=== PATIENT | female | born 1985 | race Caucasian/White ===

== ENCOUNTER 2018-09-08 17:10 | Inpatient (IN) | payer OTHER ==
[2018-09-08] MEDS: LACTATED RINGERS SOLUTION 1,000 ML/1,000 ML INFUS.BAG IV SCH (18:00)
[2018-09-08 18:03] VITALS: BMI 37.5
[2018-09-08] MEDS ORDERED: DINOPROSTONE 10 MG VAGINAL SUPPOSITORY VG ONE (18:16)
[2018-09-08] MEDS ORDERED: BUTORPHANOL TARTRATE 1 MG/ML VIAL IVPB ONE (18:18)
[2018-09-08] MEDS ORDERED: PROMETHAZINE HCL 25 MG/1 ML VIAL IVPUSH ONE (18:18)
--- NOTE | 2018-09-08 18:28 | HP ---
Past Medical History - Admission Chief Complaint: here for labor induction History of Present Illness: 33 y/o P0 with SIUP at 40+ weeks here for labor induction. Pt 1-2 cm dilated in office today. only complicated by on and off vaginal spotting. no DM/HTN or other medical issues. Abnormal pap in 1st trimester, to repeat after delivery. History Source: Patient, Medical Record - Past Medical History [employer]: No: Seizure Cardiovascular: No: Aortic Insufficiency Pulmonary: No: Asthma Gastrointestinal: No: GERD Hepatobiliary: No: Hepatitis B, Hepatitis C Reproductive: No: Ectopic , Endometriosis, Fibroids ...: 1 ...Para: 0 ...Term: 0 ...: 0 ...Spon : 0 ...Induced : 0 ...Multiple Gestation: 0 ...EDC by [facility]: 09/04/18 Heme/Onc: No: Anemia Psych: No: Anxiety, Bipolar, Depression - Past Surgical History Past Surgical History: Yes: None Hx Myomectomy: No Hx Transabdominal Cerclage: No - Smoking History Smoking history: Never smoked Have you smoked in the past 12 months: No - Alcohol/Substance Use Hx Alcohol Use: No - Social History History of Recent Travel: No Home Medications - Allergies Allergies/Adverse Reactions: Allergies Allergy/AdvReac Type Severity Reaction Status Date / Time No Known Allergies Allergy Verified 08/18/18 06:27 - Home Medications Home Medications: Ambulatory Orders Pnv No.95/Ferrous Fum/Folic AC [ Vitamin Tablet] 1 tab PO DAILY Review of Systems - Review of Systems Constitutional: reports: No Symptoms Eyes: reports: No Symptoms HENT: reports: No Symptoms Neck: reports: No Symptoms Cardiovascular: reports: No Symptoms Respiratory: reports: No Symptoms Gastrointestinal: reports: No Symptoms Genitourinary: reports: No Symptoms Breasts: reports: No Symptoms Reported Musculoskeletal: reports: No Symptoms Integumentary: reports: No Symptoms Neurological: reports: No Symptoms Endocrine: reports: No Symptoms Hematology/Lymphatic: reports: No Symptoms Psychiatric: reports: No Symptoms Physical Exam - Maternity Vital Signs: Vital Signs Temperature 98.9 F 09/08/18 17:30 Pulse Rate 90 09/08/18 17:30 Respiratory Rate 18 09/08/18 17:30 Blood Pressure 136/84 09/08/18 17:30 O2 Sat by Pulse Oximetry (%) Constitutional: Yes: Well Nourished, No Distress, Calm Eyes: Yes: Conjunctiva Clear, EOM Intact HENT: Yes: Atraumatic, Normocephalic Neck: Yes: Trachea Midline Cardiovascular: Yes: Regular Rate and Rhythm Lungs: Clear to auscultation - Abdominal Exam/OB Number of Fetuses: Single Presentation: Vertex Contractions: Yes Regularity: Irritability Intensity: Unaware Category: I Accelerations: Uniform Decelerations: None - Vaginal Exam/OB Dilatation (cm): 2 Effacement (%): 50 - Physical Exam Psychiatric: Yes: Alert, Oriented Hemorrhage Risk Assessment - Risk Factors Medium Risk Factors: Yes: None High Risk Factors: Yes: None Risk Score: 1 Risk Level: Medium Risk Problem List - Problems (1) Term Code(s): Z34.90 - ENCNTR FOR SUPRVSN OF NORMAL , UNSP, UNSP TRIMESTER Assessment/Plan 33 y/o with SIUP at 40+ weeks for IOL NST reactive occasional irritability/cramping cervidil placed consents for vaginal delivery signed anesthesia prn
[2018-09-08 19:13] LABS: BASO % 0.4 % (0-2.0); HEMATOCRIT 38.4 % (32.4-45.2); LYMPH % 13.3 % (8-40); MCH 30.5 pg (25.7-33.7); MCHC 33.8 g/dl (32.0-36.0); MEAN CELL VOLUME 90.3 fl (80-96); MEAN PLT VOLUME 9.4 fl (7.5-11.1); MONO % 5.3 % (3.8-10.2); PLATELET COUNT 188 K/MM3 (134-434); RBC 4.25 M/mm3 (3.60-5.2); RDW 14.9 % (11.6-15.6); WHITE BLOOD COUNT 10.3 K/mm3 (4.0-10.0)
[2018-09-08 19:44] LABS: BLOOD UREA NITROGEN 13.3 mg/dL (7-18); CALCIUM 8.7 mg/dL (8.5-10.1); CREATININE 0.6 mg/dL (0.55-1.3)
[2018-09-08] MEDS ORDERED: TUBERCULIN PPD 5 TU/0.1ML SYRINGE (IN PATIENT USE ONLY) ID ONE (20:00)
[2018-09-08 20:09] LABS: INR 0.97 (0.83-1.09); PROTHROMBIN TIME (PATIENT) 11.4 SEC (9.7-13.0)
[2018-09-08 20:12] LABS: ACTIVATED PTT 29.2 SECONDS (25.2-36.5)
[2018-09-09] MEDS: LACTATED RINGERS SOLUTION 1,000 ML/1,000 ML INFUS.BAG IV SCH ×3 (01:00→19:14)
[2018-09-09] MEDS ORDERED: PROMETHAZINE HCL 25 MG/1 ML VIAL ONE (01:36)
[2018-09-09] MEDS ORDERED: BUTORPHANOL TARTRATE 2 MG/ML VIAL ONE (01:36)
[2018-09-09] MEDS ORDERED: OXYTOCIN 30 UNITS in 0.9% NS 30 UNIT/500 ML INFUS.BAG IVPB SCH (06:45)
[2018-09-09] MEDS ORDERED: OXYTOCIN 30 UNITS in 0.9% NS 30 UNIT/500 ML INFUS.BAG IVPB ONE (08:21)
[2018-09-09] MEDS ORDERED: FENTANYL/BUPIVACAINE/NS/PF - PCEA - 50 ML DISP.SYRIN EP ONE ×2 (10:24→15:40)
--- NOTE | 2018-09-09 10:29 | PN ---
Ante-Partal Exam - Subjective Subjective: Pt feeling uncomfortable. Vital Signs: Vital Signs Temperature 98.1 F 09/09/18 04:00 Pulse Rate 66 09/09/18 04:00 Respiratory Rate 18 09/09/18 04:00 Blood Pressure 112/70 09/09/18 04:00 O2 Sat by Pulse Oximetry (%) Bleeding: Yes Bleeding Description: Mild Headache: No Visual changes: No Right upper quadrant pain: No Pain (scale 1-10): 5 - Contractions Contractions: Yes Regularity: Irregular Intensity: Mild/Mod - Exam during Labor Heart Rate: 140 Variability: Moderate Category: I Monitor Accelerations: Present Monitor Decelerations: None Exam: Vaginal Dilatation (cm): 3.5 Effacement (%): 70 Amniotic Membrane Status: Intact Presentation: Vertex Station: -2 - Intrapartum Hemorrhage Risk Medium Risk Factors: None High Risk Factors: None Risk Score: 0 Risk Level: Low Risk - Assessment/Plan Assessment/Plan: Pt 3-4 cm dilated, uncomfortable with contractions To get epidural, then AROM continue active management
[2018-09-09] MEDS ORDERED: ELECTROLYTE-148 SOLN 1,000 ML IV SCH (11:45)
[2018-09-09] MEDS ORDERED: FENTANYL/BUPIVACAINE/NS/PF - PCEA - 50 ML DISP.SYRIN EP SCH (13:30)
[2018-09-09] MEDS ORDERED: NALOXONE HCL 0.4 MG/ML VIAL IVPUSH PRN (13:31)
[2018-09-09] MEDS ORDERED: LIDOCAINE HCL 1% PRESERVATIVE FREE - 30ML VIAL ONE (17:51)
[2018-09-09] MEDS ORDERED: OXYTOCIN 20 UNITS in 0.9% NS 20 UNIT/1,000 ML INFUS.BAG IV ONE (17:51)
--- NOTE | 2018-09-09 19:38 | PN ---
Delivery - Delivery Vaginal Delivery: No Problems Type of Anesthesia: Epidural Episiotomy/Laceration: 2nd degree EBL (cc): 400 Delivery, Single - Stages of Labor Date of Delivery: 09/09/18 Time of Delivery: 18:49 Date Placenta Delivered: 09/09/18 Time Placenta Delivered: 19:03 Placenta: Yes: Spontaneous - Condition of Infant Position: Right, OA - 1 Minute Total Score: 9 5 Minutes Total Score: 9 - Feeding Plan Initial Plan: Exclusive throughout hospitalization Remarks - Remarks Remarks: Uncomplicated from LALO position across 2nd degree perineal laceration anterior shoulder (left) delivered with ease along with remainder of mouth and nose bulb suctioned 3vc noted, clamped and cut after 30 seconds of delayed clamping 2nd degree laceration repaired with 2-0 vicryl sponge and needle count correct after delivery and repair mom stable baby to well baby nursery oxytocin infusing after delivery
[2018-09-09] MEDS ORDERED: METHYLERGONOVINE MALEATE 0.2 MG/1 ML AMP IM PRN (19:39)
[2018-09-09] MEDS ORDERED: ACETAMINOPHEN 325 MG TABLET (FP) PO PRN (19:39)
[2018-09-09] MEDS ORDERED: BISACODYL 10 MG SUPP.RECT RC PRN (19:39)
[2018-09-09] MEDS ORDERED: BENZOCAINE 28 GM HEMORRHOIDAL OINTMENT TP PRN (19:39)
[2018-09-09] MEDS ORDERED: WITCH HAZEL 50% (TUCKS) 40 PAD/JAR PAD TP PRN (19:39)
[2018-09-09] MEDS ORDERED: BENZOCAINE 20% 57 GM BOTTLE TP PRN (19:39)
[2018-09-09] MEDS ORDERED: IBUPROFEN 600 MG TABLET (FP) PO PRN (19:39)
[2018-09-09] MEDS ORDERED: OXYTOCIN 20 UNITS in 0.9% NS 20 UNIT/1,000 ML INFUS.BAG IV SCH (19:45)
--- NOTE | 2018-09-10 05:51 | PN ---
Post Progress Note - Subjective Subjective: Pt seen/evaluated and doing well. Soreness on perineum otherwise no complaints. Ambulating, voiding, passing flatus. Tolerating diet. Lochia moderate but decreasing. Type of Delivery: Vital Signs: Vital Signs Temperature 98.7 F 09/10/18 04:00 Pulse Rate 93 H 09/10/18 04:00 Respiratory Rate 20 09/09/18 21:47 Blood Pressure 119/71 09/10/18 04:00 O2 Sat by Pulse Oximetry (%) 100 09/09/18 20:30 Uterus: Yes: Fundus Firm Abdomen/GI: Yes: Abdomen soft, Tolerating PO Lochia: Yes: Rubra Lochia, amount: Moderate Extremities: Yes: Calves non-tender Perineum: Yes: Laceration (2nd degree repaired and well approximated) Activity: Ambulating - Labs Labs: CBC WBC 10.3 K/mm3 (4.0-10.0) H 09/08/18 18:50 RBC 4.25 M/mm3 (3.60-5.2) 09/08/18 18:50 Hgb 13.0 GM/dL (10.7-15.3) 09/08/18 18:50 Hct 38.4 % (32.4-45.2) 09/08/18 18:50 MCV 90.3 fl (80-96) 09/08/18 18:50 MCH 30.5 pg (25.7-33.7) 09/08/18 18:50 MCHC 33.8 g/dl (32.0-36.0) 09/08/18 18:50 RDW 14.9 % (11.6-15.6) 09/08/18 18:50 Plt Count 188 K/MM3 (134-434) 09/08/18 18:50 MPV 9.4 fl (7.5-11.1) 09/08/18 18:50 Absolute Neuts (auto) 8.2 K/mm3 (1.5-8.0) H 09/08/18 18:50 Neutrophils % 80.0 % (42.8-82.8) 09/08/18 18:50 Lymphocytes % 13.3 % (8-40) 09/08/18 18:50 Monocytes % 5.3 % (3.8-10.2) 09/08/18 18:50 Eosinophils % 1.0 % (0-4.5) 09/08/18 18:50 Basophils % 0.4 % (0-2.0) 09/08/18 18:50 Nucleated RBC % 0 % (0-0) 09/08/18 18:50 Problem List - Problems (1) Term Code(s): Z34.90 - ENCNTR FOR SUPRVSN OF NORMAL , UNSP, UNSP TRIMESTER Assessment/Plan 33 y/o PPD#1 s/p normal regular diet PO pain meds ice to perineum prn routine care
[2018-09-10] MEDS: FERROUS SO4 325 MG TABLET (FP) PO SCH ×3 (08:37→17:31)
[2018-09-10 08:45] LABS: BASO % 0.2 % (0-2.0); EOS % 0.5 % (0-4.5); HEMATOCRIT 32.4 % (32.4-45.2); HEMOGLOBIN 10.9 GM/dL (10.7-15.3); LYMPH % 10.1 % (8-40); MCH 30.7 pg (25.7-33.7); MCHC 33.7 g/dl (32.0-36.0); MEAN CELL VOLUME 91.1 fl (80-96); MEAN PLT VOLUME 9.4 fl (7.5-11.1); MONO % 6.9 % (3.8-10.2); NEUT % 82.3 % (42.8-82.8); RBC 3.56 M/mm3 (3.60-5.2); RDW 15.3 % (11.6-15.6); WHITE BLOOD COUNT 12.3 K/mm3 (4.0-10.0)
[2018-09-10 09:18] LABS: PLATELET COUNT 151 K/MM3 (134-434)
[2018-09-10] MEDS ORDERED: DIPHTH,PERTUSS(ACELL),TET 0.5 ML DISP.SYRIN IM ONE (10:00)
[2018-09-10] MEDS: PRENATAL VITAMINS W/ FOLIC ACID TABLET (FP) PO SCH (10:53)
[2018-09-10] MEDS ORDERED: SENNOSIDES/DOCUSATE COMBO (SENNA PLUS) TABLET (UD) PO PRN (22:00)
[2018-09-11] MEDS: FERROUS SO4 325 MG TABLET (FP) PO SCH (09:29)
[2018-09-11] MEDS: PRENATAL VITAMINS W/ FOLIC ACID TABLET (FP) PO SCH (09:29)
[2018-09-11 11:25] VITALS: BP 111/73; PULSE 87; TEMP 98.1
== END 2018-09-11 11:25 | disposition home or self-care (01) | DRG 807 ==
LOC: JLDR 17:10 → J3W 09-09 21:25
PROVIDERS: ADMIT Obstetrics & Gynecology; ATTEND Obstetrics & Gynecology
PROC: 10E0XZZ Delivery of Products of Conception, External Approach (ICD-10-PCS; principal; 2018-09-09)
PROC: 3E0P7VZ Introduction of Hormone into Female Reproductive, Via Natural or Artificial Opening (ICD-10-PCS; 2018-09-09)
DX: O48.0 Post-term pregnancy (principal); O70.1 Second degree perineal laceration during delivery; Z3A.40 40 weeks gestation of pregnancy; Z37.0 Single live birth
CPT/HCPCS: 36415; 59409; 80048; 85025; 85610; 85730; 86593; 86850; 86900; 86901; 90715